=== PATIENT | female | born 1950 | race Caucasian/White ===

== ENCOUNTER 2017-08-31 11:00 | Outpatient (CLI) | payer BC ==
--- NOTE | 2017-09-01 08:42 | PET ---
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 Patient h ad esophagectomy in December 2014 with esophageal stump distally and anterior gastric pull-through reynaldo yo. Patient's last chemo/radiation therapy was in September 2014. Exam requested for restaging. TECHNIQUE: PET scanning with CT attenuation correction was performed from the base of the brain through the prox imal thighs following the intravenous administration of 10 mCi F18-FDG in the right antecubital fossa . COMPARISON: PET CT dated 09/08/14. CORRELATION; CT pulmonary angiogram dated 08/21/17 from [place], [place]. FINDINGS: There are postop changes of esophagectomy with gastric pull-through in the anterior mediastinum and a nterior chest. There are chronic erosive postop changes in the left clavicular head and adjacent soft tissue density which demonstrates increased FDG localization with a SUV of 4.8. This most likely rep resents granulation tissue/postop change, though the possibility of metastasis cannot be completely e xcluded. No gracie hypermetabolism is seen in the neck, mediastinum, hilar regions, axilla, abdomen, or pelvis. No hypermetabolic liver, adrenal, or skeletal lesions are seen. The consolidative change in the lungs noted on the CT scan of 08/21/17 demonstrates significant impro vement with mild residual patchy areas of consolidation at the left lung base and accompanying small left pleural effusion. No significant hypermetabolic activity is noted in this region (maximum SUV 2. 1). No hypermetabolic pulmonary nodules are identified. There is physiologic activity in the GI and tracts, and the visualized portions of the brain. The CT scan used for attenuation correction demonstrates a small left pleural effusion. No ascites se en. IMPRESSION: Focal hypermetabolic activity in the soft tissue adjacent to the postop changes in the left clavicula r head. This most likely represents granulation tissue from postop change, though the possibility of metastasis cannot be completely excluded. POS: ELMER
== END 2017-08-31 11:01 | disposition home or self-care (01) ==
LOC: PET 11:00
PROVIDERS: ATTEND Internal Medicine Hematology & Oncology
DX: C78.7 Secondary malignant neoplasm of liver and intrahepatic bile duct (principal); C15.9 Malignant neoplasm of esophagus, unspecified
CPT/HCPCS: 78815; A9552

== ENCOUNTER 2017-09-08 10:24 | Outpatient (CLI) | payer BC ==
--- NOTE | 2017-09-08 11:59 | ULT ---
GALLBLADDER ULTRASOUND: HISTORY: Esophageal cancer with nonhypermetabolic liver lesions on the PET CT of 08/31/2017. FINDINGS: There are cysts in the liver, measuring 1.7 cm in the right lobe and 1.9 cm in the left lobe. No int rahepatic ductal dilatation is seen. No gallstones, gallbladder wall thickening, or pericholecystic fluid is identified. The gallbladder is distended, measuring 10 cm in length. The common duct measures about 1 cm in diameter. The right kidney and the visualized portions of the pancreas are unremarkable. No free fluid is seen in the Carrillo pouch. IMPRESSION: 1. Hepatic cysts. 2. Distended gallbladder. 3. Dilated common bile duct without cholelithiasis or choledocholithiasis. POS: ELMER
== END 2017-09-08 10:25 | disposition home or self-care (01) ==
LOC: SCSULT 10:24
PROVIDERS: ATTEND Internal Medicine Hematology & Oncology
DX: K76.89 Other specified diseases of liver (principal); K82.8 Other specified diseases of gallbladder; K83.8 Other specified diseases of biliary tract
CPT/HCPCS: 76705

== ENCOUNTER 2018-12-01 10:54 | Outpatient (CLI) | payer BC ==
--- NOTE | 2018-12-01 13:31 | CT ---
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 COMPARISON: None TECHNIQUE: Multiple contiguous axial images were obtained and a CT of the brain without and with cont rast. FINDINGS: The brain is normal in morphology and attenuation without focal lesions or confluent areas of infarction. There is no evidence of hydrocephalus, intracranial hemorrhage, or extra-axial fluid collection. No abnormal enhancement is seen. The calvarium and overlying soft tissues are unremarkable. The visualized paranasal sinuses and masto id air cells are well aerated. IMPRESSION: No evidence of acute intracranial abnormality
--- NOTE | 2018-12-01 16:02 | PET ---
PET CT: 12/01/18 HISTORY: 68-year-old female with history of esophageal cancer. Recent right neck lymph gracie biopsy on 11/22/18 . Demonstrated a metastatic poorly differentiated squamous cell carcinoma. Patient was treated with c hemo and radiation therapy and surgery in 2015. TECHNIQUE: PET scan with CT attenuation correction was performed from the vertex through the proximal thighs fol lowing the intravenous administration of 9 millicuries of 15-fluorodeoxyglucose in the left antecubit al fossa. CORRELATION: Correlation is made with the CT of the neck and chest from 11/10/18 from [facility] in [place], [place]. COMPARISON: None. FINDINGS: There is intense uptake in the right lower neck lymph node with an SUV of 15.2. Increased uptake is a lso seen in the right paratracheal lymph node at the thoracic inlet with an SUV of 9.7. There is increased uptake in the left clavicular head with an SUV of 4.6 in the region of a lytic les ion with cortical destruction/resorption. This may either be secondary to postop change or metastatic disease. No hypermetabolic pulmonary nodules, liver, adrenal or other skeletal lesions are seen. There is physiologic activity in the brain, GI and tracts. The CT scan used for attenuation correction demonstrates no evidence of pleural effusions or ascites. IMPRESSION: 1. Findings are consistent with lymph gracie metastasis in the right lower neck and thoracic inle t. 2. Left clavicular head finding may either be due to metastatic disease or postop change. POS: ELMER
[2018-12-01] MEDS ORDERED: Iopamidol 370 76% 100 ML VIAL ONE (17:15)
== END 2018-12-01 10:55 | disposition home or self-care (01) ==
LOC: PET 10:54 → CT 10:55
PROVIDERS: ATTEND Internal Medicine Hematology & Oncology
DX: C15.8 Malignant neoplasm of overlapping sites of esophagus (principal); C78.7 Secondary malignant neoplasm of liver and intrahepatic bile duct; C77.0 Secondary and unspecified malignant neoplasm of lymph nodes of head, face and neck
CPT/HCPCS: 70470; 78815; 82565; A9552; Q9967

== ENCOUNTER 2019-04-04 11:56 | Outpatient (CLI) | payer MEDICARE ==
--- NOTE | 2019-04-04 14:46 | PET ---
Radionucleotide PET scan with CT attenuation correction HISTORY: Esophageal cancer with metastases. Restaging. COMPARISON: 12/01/2018. FINDINGS: Physiologic uptake of radiotracer throughout the enteric system and along each urinary trac t. In the areas of hypermetabolic activity on the previous study at the right lower neck and immediately to the right of the trachea at the level of the thoracic inlet, no abnormal uptake is vicente dent on today's exam. An oval soft tissue density mass at the right axilla on the current study measures up to 3.2 cm great est oblique diameter on the axial images and shows a maximum SUV of 17.6 where no mass or adenopathy were evident on previous exam. Activity at the osseous defect at the medial aspect of the left clavicle in region of prior surgery shows a maximum tissue the a 5.5 (previously 4.6). A small focus of hypermetabolic activity is now associated with the far inferior aspect of the left L 4 facet with maximum SUV 10.0 (previously nonhypermetabolic). IMPRESSION: Mixed findings. There has been complete disappearance of the right neck hypermetabolic ac tivity. Metastatic foci, however, are now present within the left L4 inferior facet and within a large right axillary mass.
== END 2019-04-04 11:57 | disposition home or self-care (01) ==
LOC: PET 11:56
PROVIDERS: ATTEND Internal Medicine Hematology & Oncology
DX: C15.8 Malignant neoplasm of overlapping sites of esophagus (principal); C78.7 Secondary malignant neoplasm of liver and intrahepatic bile duct; R94.8 Abnormal results of function studies of other organs and systems
CPT/HCPCS: 78815; A9552

== ENCOUNTER 2019-04-11 14:34 | Outpatient (CLI) | payer MEDICARE ==
[~2019-04-11 14:34] MED LIST: Magnevist 469MG/ML 20 ML VIAL ONE
--- NOTE | 2019-04-11 16:47 | MRI ---
MRI LUMBAR SPINE WITH AND WITHOUT CONTRAST: DATE: 04/11/19 HISTORY: 68-year-old female with esophageal cancer and metastasis. Abnormal focus of FDG avidity around the le ft L4-5 facet complex on recent PET scan of 04/04/2019. COMPARISON: PET scan of 04/04/2019. No prior lumbar spine MRIs. TECHNIQUE: Multiple sequences obtained in axial and sagittal planes, pre and post IV injection of gadolinium-bas ed contrast agent: 10 mL Multihance. FINDINGS: At the lateral aspect of the left L4-5 facet complex, there is ill-defined region of moderate T2-hype rintensity, T1-hypointensity, and enhancement. This enhancement and signal abnormality extends periph erally into the adjacent left perivertebral space soft tissues. There is a thin, short linear cystic lesion in the center of this soft tissue abnormality and enhancement. The enhancement also extends in to the inferior aspect of the left L4-5 facet joint. The upper portion of the left L4-5 facet joint a ppears normal, with no high grade DJD. 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 No high grade ce ntral spine canal stenosis at any level. No abnormal enhancement or mass involving the intramedullary portion of the lower spinal cord, extramedullary-intradural space, or extradural space. Vertebral tay dies have normal signal with no abnormal enhancement. Mild to moderate degenerative disc changes at m ultiple levels in the lumbar spine including mild to moderate disc space narrowing at L3-4, L4-5, and L5-S1, with mild diffuse disc bulges at all levels from L2-3 through L5-S1. No high grade neural for aminal stenosis at any level. Multiple small nerve root sleeve cysts in neural foramina at several l evels. The common bile duct is 9 mm in caliber. The common hepatic duct is up to 12 mm in caliber. IMPRESSION: 1. Abnormal signal and enhancement in the bone marrow and adjacent soft tissues, involving the a cynthia of the left L4-5 facet complex (plus a central small cystic lesion in the abnormal soft tissues). This corresponds to the FDG avid lesion on the recent PET scan. It is uncertain whether this represe nts an infectious or inflammatory process, or a focal metastasis. The appearance is not classic for e ither. 2. Recommend serial follow-up MRIs of lumbar spine with and without contrast, or follow-up PET s cans, beginning in 3 to 6 months. 3. Extrahepatic biliary ductal dilation. Recommend correlation with serum bilirubin levels. THUY [place] POS: CET
== END 2019-04-11 14:35 | disposition home or self-care (01) ==
LOC: MRI 14:34
PROVIDERS: ATTEND Internal Medicine Hematology & Oncology
DX: C15.8 Malignant neoplasm of overlapping sites of esophagus (principal); C78.7 Secondary malignant neoplasm of liver and intrahepatic bile duct; R93.7 Abnormal findings on diagnostic imaging of other parts of musculoskeletal system; K83.8 Other specified diseases of biliary tract
CPT/HCPCS: 72158; 82565; A9579

== ENCOUNTER 2019-07-11 08:58 | Outpatient (CLI) | payer MEDICARE ==
--- NOTE | 2019-07-11 11:33 | PET ---
Exam: PET SCAN WITH CT ATTENUATION CORRECTION: COMPARISON: 12/01/2018, 04/04/2019. HISTORY: Malignant neoplasm of overlapping sites of the esophagus. Esophageal cancer with liver metas tases. Right neck lymphadenopathy from squamous cell carcinoma. TECHNIQUE: PET scan with CT attenuation correction from the skull vertex to the proximal thighs follo wing the intravenous administration of 13.3 mCi of [id number]. FINDINGS: Head and neck: Mild asymmetric uptake of radiotracer in the posterior left oral cavity, with a maximu m SUV of 2.9. Correlate for mucosal-based pathology. Upper normal metabolic lymph nodes in the right neck with a maximum SUV of 2.3. Chest: Redemonstration of hypermetabolic activity involving a right axillary lymph node with a maximu m SUV of 8.8. CT used for attenuation correction demonstrates the lymph node measuring 1.9 x 2.1 cm. Stable postsurgical change with esophageal pull-through. There appears to be intermittent hyperme tabolic activity which may represent normal enteric distribution. There is persistent erosion of hypermetabolic activity involving the medial left clavicle. Maximum SUV is 3.2. CT used for attenuati on correction demonstrates chronic nonhypermetabolic lung parenchymal changes. Abdomen and pelvis: No abnormal FDG localization in the solid organs. CT used for attenuation correct ion demonstrates a hypodensity adjacent to the falciform ligament, which is nonhypermetabolic. Osseous structures: There is increased FDG avidity involving multiple vertebra. Additional increased FDG avidity is noted in the visualized bony pelvis. 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 IMPRESSION: 1. Upper normal hypermetabolic activity involving the lower right neck lymph nodes. 2. Persistent hypermetabolic activity involving an enlarged right axillary lymph node. 3. Persistent hypermetabolic activity along the esophageal pull-through as well as along the medial a spect of the left clavicle. 4. Increased hypermetabolic activity involving multiple thoracic and lumbar vertebra as well as the b sukhjinder pelvis. Nonspecific findings. Correlate for marrow stimulation. If there is concern for osseous metastases, bone scan may be beneficial. Transcribed Date/Time: 07/11/2019 1:58 PM
== END 2019-07-11 08:59 | disposition home or self-care (01) ==
LOC: PET 08:58
PROVIDERS: ATTEND Internal Medicine Hematology & Oncology
DX: C15.8 Malignant neoplasm of overlapping sites of esophagus (principal); C78.7 Secondary malignant neoplasm of liver and intrahepatic bile duct; R59.0 Localized enlarged lymph nodes
CPT/HCPCS: 78815; A9552

== ENCOUNTER 2019-09-12 10:26 | Outpatient (CLI) | payer MEDICARE ==
--- NOTE | 2019-09-12 14:28 | PET ---
PET CT: HISTORY: A 69-year-old female with esophageal cancer with liver mass. The patient is currently undergoing victoria motherapy. Exam is requested to evaluate response to treatment and subsequent therapy planning. TECHNIQUE: PET scanning with CT attenuation correction is performed from the vertex through the proximal thighs following the intravenous administration of 11 mCi [id number] in the left antecubital fos sa. COMPARISON: PET CT of 07/11/2019. FINDINGS: There is increased FDG localization in the right cervical lymph nodes with an SUV of 3 (previously 2. 3), right axilla with an 11.4 (previously 8.8). New hypermetabolic lymph nodes are seen in the media stinum with SUVs of 9.38 in the right paratracheal, 6.1 in the precarinal, and 6.4 in the right infra carinal/paraspinal regions. There are sentinel nodules in the left upper lobe. Only one of these is hypermetabolic with an SUV o f 4.3 and is located in the peripheral aspect of the left upper lobe. No hypermetabolic liver or adrenal lesions are seen. There is focal uptake in the erosive lesion medial left clavicle with an SUV of 4.6 (previously 3.2). A new focus of increased uptake is seen in the left pedicle of L5 with an SUV of 10. There is physiologic activity in the GI and tracts and the brain. The CT scan used for attenuation correction demonstrates no evidence of pleural effusions or ascites. IMPRESSION: Findings are consistent with metastatic disease involving the lymph nodes, lung and bones. POS: ELMER
== END 2019-09-12 10:27 | disposition home or self-care (01) ==
LOC: PET 10:26
PROVIDERS: ATTEND Internal Medicine Hematology & Oncology
DX: C15.9 Malignant neoplasm of esophagus, unspecified (principal); C78.7 Secondary malignant neoplasm of liver and intrahepatic bile duct
CPT/HCPCS: 78815; A9552

== ENCOUNTER 2019-12-26 08:00 | Outpatient (CLI) | payer MEDICARE ==
--- NOTE | 2019-12-26 12:32 | PET ---
Radionucleotide PET scan with CT attenuation correction HISTORY: Esophageal cancer. Metastatic disease. Restaging. FINDINGS: Physiologic uptake of radiotracer is apparent within the enteric system and along each urin jose tract. A small focus of uptake at the posterior larynx is unchanged from the prior study and likely physiologic. Uptake associated with the erosive lesion involving the left clavicular head now shows max SUV 5.5 (p reviously 4.1). The uptake may be associated with the osseous erosion and inflammation rather than worsening of neoplastic disease. The right axillary adenopathy is much smaller than on the prior study, now with max SUV 3.0 (previous ly 13.2). At the subcarinal level of the mediastinum, a nonenlarged lymph node shows max SUV 2.6 (previously 6. 1). No abnormal uptake is now associated with right upper paratracheal and paraspinal lymph nodes. No abnormal uptake at the left lung nodule or L5 left pedicle. Subtle patchy parenchymal opacity with mild reactive uptake is noted within the posterior segment of the right upper lobe. Within the left upper quadrant of the abdomen, there are extensive postoperative changes. A lobular a cynthia of increased uptake shows max SUV 8.3. It is difficult to correlate specifically bowel anatomy. It is in an area of radiopaque sutures on the CT attenuation correction images. A well-defined mass i s not evident. No other new areas of increased uptake are evident. IMPRESSION : Significant interval improvement, with resolution of many of the metastatic lesions and significant i mprovement in the remainder. Activity associated with bowel in the left upper quadrant is in the general location of prior surgery . Given the significant improvement on the remainder of the exam, however, it is favored to be more likely related to excreted material than recurrent neoplasm. Mildly hypermetabolic parenchymal infiltrate within the posterior segment right upper lung lobe.
== END 2019-12-26 08:01 | disposition home or self-care (01) ==
LOC: PET 08:00
PROVIDERS: ATTEND Internal Medicine Hematology & Oncology
DX: C15.8 Malignant neoplasm of overlapping sites of esophagus (principal); C78.00 Secondary malignant neoplasm of unspecified lung; C77.9 Secondary and unspecified malignant neoplasm of lymph node, unspecified
CPT/HCPCS: 78815; 80053; 82248; 83615; 84100; 84436; 84443; 84550; A9552; 36415

== ENCOUNTER 2020-04-30 08:06 | Outpatient (CLI) | payer MEDICARE ==
--- NOTE | 2020-04-30 12:19 | PET ---
PET CT: HISTORY: 69-year-old female with malignant neoplasm of overlapping sites of esophagus. Exam requested to evalu ate response to treatment. Patient fell 2 weeks ago and complains of right hip and shoulder pain. Pat ient currently undergoing chemotherapy. TECHNIQUE: PET scanning with CT attenuation correction was performed from the vertex through the proximal thighs following the intravenous administration of 10.3 mCi F18-FDG in the left antecubital fossa. COMPARISON: PET CT dated 12/26/2019. FINDINGS: There is continued hypermetabolic activity in the lesion involving the left clavicular head with a MOONEY V of 4.8 (previously 5.5). No gracie hypermetabolism is seen in the neck, chest, axilla, abdomen, or pelvis. The patchy parenchymal opacity in the posterior segment of the right upper lobe is again seen with re active uptake and SUV of 3.9 (previously 2.9). No hypermetabolic pulmonary nodules, liver, or adrenal lesions are seen. There is physiologic activity in the GI and tracts. An intense focus of FDG localization is seen i n the left upper quadrant in the region of the splenic flexure of 7.9, which is new, and could repres ent a splenic flexure malignancy. There is a new focus of increased uptake in the right anterior acetabulum with a SUV of 16.8 and a ne w focus of increased uptake in the posterior right humeral head with a SUV of 2.6. No definite abnorm alities are seen on the bone windows of the CT scan used for attenuation correction in these regions. The CT scan used for attenuation correction demonstrates no evidence of pleural effusions or ascites. IMPRESSION: 1. Recommend evaluation of the finding in the left upper quadrant with colonoscopy. 2. Findings in the right acetabulum and right humeral head are most likely due to recent trauma. The se would be better evaluated with a MRI. 3. No definite evidence of metastatic disease. POS: HELLEN
== END 2020-04-30 08:07 | disposition home or self-care (01) ==
LOC: PET 08:06
PROVIDERS: ATTEND Internal Medicine Hematology & Oncology
DX: C15.8 Malignant neoplasm of overlapping sites of esophagus (principal); C79.9 Secondary malignant neoplasm of unspecified site
CPT/HCPCS: 78815; A9552

== ENCOUNTER 2020-09-03 08:14 | Outpatient (CLI) | payer MEDICARE | END 2020-09-03 08:15 | disposition home or self-care (01) | LOC: PET 08:14 | PROVIDERS: ATTEND Internal Medicine Hematology & Oncology | DX: C15.8 Malignant neoplasm of overlapping sites of esophagus (principal) | CPT/HCPCS: 78815; A9552 ==

== ENCOUNTER 2021-03-04 08:18 | Outpatient (CLI) | payer MEDICARE | END 2021-03-04 08:19 | disposition home or self-care (01) | LOC: PET 08:18 | PROVIDERS: ATTEND Internal Medicine Hematology & Oncology | DX: C15.8 Malignant neoplasm of overlapping sites of esophagus (principal) | CPT/HCPCS: 78815; A9552 ==

== ENCOUNTER 2021-09-17 11:00 | Outpatient (CLI) | payer MEDICARE | END 2021-09-17 11:01 | disposition home or self-care (01) | LOC: PET 11:00 | PROVIDERS: ATTEND Internal Medicine Hematology & Oncology | DX: C15.8 Malignant neoplasm of overlapping sites of esophagus (principal); C79.51 Secondary malignant neoplasm of bone | CPT/HCPCS: 78815; A9552 ==

== ENCOUNTER → 2022-04-10 | Outpatient (CLI) | payer MEDICARE | LOC: PET 09:30 | PROVIDERS: ATTEND Internal Medicine Hematology & Oncology | DX: C15.8 Malignant neoplasm of overlapping sites of esophagus (principal); C79.51 Secondary malignant neoplasm of bone; M81.8 Other osteoporosis without current pathological fracture; D50.8 Other iron deficiency anemias; D51.8 Other vitamin B12 deficiency anemias | CPT/HCPCS: 78815; A9552 ==

== ENCOUNTER 2023-04-16 10:15 | Outpatient (CLI) | payer MEDICARE | END 2023-04-16 10:16 | disposition home or self-care (01) | LOC: PET 10:15 | PROVIDERS: ATTEND Internal Medicine Hematology & Oncology | DX: C15.8 Malignant neoplasm of overlapping sites of esophagus (principal); C79.51 Secondary malignant neoplasm of bone; J18.9 Pneumonia, unspecified organism | CPT/HCPCS: 78815; A9552 ==

== ENCOUNTER 2023-10-15 10:15 | Outpatient (CLI) | payer MEDICARE | END 2023-10-15 10:16 | disposition home or self-care (01) | LOC: PET 10:15 | PROVIDERS: ATTEND Internal Medicine Hematology & Oncology | DX: C15.8 Malignant neoplasm of overlapping sites of esophagus (principal); C79.51 Secondary malignant neoplasm of bone; J18.9 Pneumonia, unspecified organism; J98.4 Other disorders of lung | CPT/HCPCS: 78815; A9552 ==

== ENCOUNTER 2024-05-05 09:30 | Outpatient (CLI) | payer MEDICARE | END 2024-05-05 09:31 | disposition home or self-care (01) | LOC: PET 09:30 | PROVIDERS: ATTEND Internal Medicine Hematology & Oncology | DX: C79.51 Secondary malignant neoplasm of bone (principal); C15.8 Malignant neoplasm of overlapping sites of esophagus | CPT/HCPCS: 78815; A9552 ==